=== PATIENT | female | born 1975 | race Two or more races ===

== ENCOUNTER 2017-11-17 18:03 | Emergency (ER) | payer MEDICAID, OTHER ==
[~2017-11-17] VITALS: Ht 167.6 cm; Wt 105.0 kg
[2017-11-18] MEDS ORDERED: KETOROLAC 60MG/2ML VIAL IM ONE (01:45)
[2017-11-18 02:04] VITALS: BP 101/64
== END 2017-11-18 03:30 | disposition home or self-care (01) ==
LOC: ER 21:40
DX: M54.5 Low back pain (principal); Y04.2XXA Assault by strike against or bumped into by another person, initial encounter; Y07.03 Male partner, perpetrator of maltreatment and neglect; Y93.89 Activity, other specified; Y92.098 Other place in other non-institutional residence as the place of occurrence of the external cause
CPT/HCPCS: 72131; 81025; 96372; 99284; J1885